=== PATIENT | female | born 2000 | race African-American/Black ===

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

== ENCOUNTER 2020-01-03 08:51 | Outpatient (CLI) | payer BC, OTHER ==
--- NOTE | 2020-01-03 10:11 | ULT ---
Complete obstetrical ultrasound INDICATION: Anatomy and evaluate cervix TECHNIQUE: Grayscale, M-mode Doppler and Doppler images were obtained of the abdomen and pelvis to ev aluate the patient's known . COMPARISON: None. FINDINGS: Number of gestations: Single. Presentation: Vertex. Placental location: Posterior Previa: No evidence for previa. Cervical length: 3.2 cm without evidence of funneling. ZOË: 9.64 cm. heart rate: 139 bpm. Biparietal diameter: 4.60cm, 20 weeks 0 days, Not calculated.. Head circumference: 16.9 cm, 19 weeks 5 days, Not calculated. Abdominal circumference: 14.40 cm, 19 weeks and 6 days, Not calculated. Femoral length: 3.75cm, 22 weeks and 0 days, Not calculated. Estimated weight: 366 g +/- 53g (0 lbs. 13 oz. +/- 2 ounces), 32nd percentile. SURVEY: head: Normal appearing. Cerebellum: Normal appearing. Cisterna magna: Normal appearing. Lateral ventricles: Normal appearing. 4 chamber heart: Normal appearing.. Stomach: Normal appearing. Kidneys: Normal appearing. Cord insertion: Normal appearing. Bladder: Normal appearing. Spine: Normal appearing. Lips and nose: Normal appearing. Extremities: Normal appearing. Three-vessel CORD: Normal appearing. The average gestational age by ultrasound is 20 weeks and 3 dayswith estimated due date of May 19, 2020. The estimated dates by clinical data is 20 weeks and 6 dayswith estimated due date of May 16, 2020. IMPRESSION: 1. Single live intrauterine gestation with size and dates as above. 2. survey appeared within normal limits. 3. ZOË is just above the 5th percentile for gestational age. Continued close sonographic follow-up is recommended.
== END 2020-01-03 08:52 | disposition home or self-care (01) ==
LOC: BICULT 08:51
PROVIDERS: ATTEND Family Medicine
DX: Z34.02 Encounter for supervision of normal first pregnancy, second trimester (principal); Z3A.20 20 weeks gestation of pregnancy
CPT/HCPCS: 76805

== ENCOUNTER 2020-03-03 09:42 | Emergency (ER) | payer BC, OTHER ==
[2020-03-03 18:58] LABS: SARS-CoV-2 MS2 Positive; SARS-CoV-2 N Gene Negative; SARS-CoV-2 S Gene Negative; SARS-CoV-2 by NAA Not Detected (NotDetected); SARS-CoV-2 orf1ab Negative
== END 2020-03-03 10:30 | disposition home or self-care (01) ==
LOC: ERS 09:42
DX: Z20.822 Contact with and (suspected) exposure to COVID-19 (principal); Z3A.29 29 weeks gestation of pregnancy
CPT/HCPCS: 87635; 99283; U0003

== ENCOUNTER 2022-05-28 07:10 | Emergency (ER) | payer OTHER | END 2022-05-28 07:30 | LOC: ERS 07:10 | DX: Z53.21 Procedure and treatment not carried out due to patient leaving prior to being seen by health care provider (principal) ==